=== PATIENT | female | born 1950 | race Caucasian/White ===

== ENCOUNTER 2018-01-29 18:31 | Emergency (ER) | payer SELFPAY, OTHER ==
[2018-01-29] MEDS: predniSONE 20 MG TAB PO (20:10)
[2018-01-29 20:18] LABS: ADD MAN DIFF? NO
[2018-01-29 20:20] LABS: BASOPHILS % 0.2 % (0.0-2.0); EOSINOPHILS # 0.1 10^3/ul (0.0-0.5); EOSINOPHILS % 2.5 % (0.0-7.0); HEMATOCRIT 39.3 % (37.0-47.0); HEMOGLOBIN 13.9 g/dl (12.0-16.0); LYMPHOCYTES # 1.6 10^3/ul (0.8-2.9); LYMPHOCYTES % 38.8 % (15.0-51.0); MEAN CORPUSCULAR HEMOGLOBIN 33.3 pg (29.0-33.0); MEAN CORPUSCULAR HGB CONC 35.4 g/dl (32.0-37.0); MEAN PLATELET VOLUME 10.6 fl (7.4-10.4); MONOCYTE # 0.3 10^3/ul (0.3-0.9); MONOCYTES % 7.2 % (0.0-11.0); NEUTROPHIL # 2.1 10^3/ul (1.6-7.5); NEUTROPHILS % 51.1 % (39.0-77.0); PLATELET COUNT 204 10^3/UL (140-415); RED BLOOD COUNT 4.18 10^6/ul (4.20-5.40)
[2018-01-29 20:20] LABS: WHITE BLOOD COUNT 4.1 10^3/ul (4.8-10.8)
[2018-01-29] MEDS: IPRATROPIUM (NEB) 0.5 MG/2.5 ML AMP INH (20:23)
[2018-01-29 20:24] LABS: POSITIVE DIFF @See below
[2018-01-29] MEDS: ALBUTEROL 0.5% (NEB) 2.5 MG/0.5 ML AMP INH (20:24)
[2018-01-29 21:18] LABS: ANION GAP 13 (8-16); BLOOD UREA NITROGEN 16 mg/dl (7-20); CALCIUM 8.8 mg/dl (8.4-10.2); CARBON DIOXIDE 27 mmol/L (21-31); CHLORIDE 103 mmol/L (97-110); CREATININE 0.82 mg/dl (0.44-1.00); GLUCOSE 101 mg/dl (70-220); POTASSIUM 4.1 mmol/L (3.5-5.1); SODIUM 139 mmol/L (135-144)
[2018-01-29 21:38] LABS: TROPONIN-I < 0.012 ng/ml (0.00-0.12)
== END 2018-01-29 22:11 | disposition home or self-care (01) ==
LOC: E/R 18:31
DX: J44.0 Chronic obstructive pulmonary disease with (acute) lower respiratory infection (principal); J06.9 Acute upper respiratory infection, unspecified; I10 Essential (primary) hypertension; R40.2142 Coma scale, eyes open, spontaneous, at arrival to emergency department; R40.2252 Coma scale, best verbal response, oriented, at arrival to emergency department; R40.2362 Coma scale, best motor response, obeys commands, at arrival to emergency department
CPT/HCPCS: 36415; 71045; 80048; 84484; 85025; 87400; 93005; 94644; 99285-25